=== PATIENT | male | born 1970 | race Caucasian/White ===

== ENCOUNTER 2016-11-08 18:18 | Emergency (ER) | payer MEDICAID | END 2016-11-08 18:51 | disposition home or self-care (01) | LOC: MADERS 18:18 | DX: K12.2 Cellulitis and abscess of mouth (principal); E11.9 Type 2 diabetes mellitus without complications; I10 Essential (primary) hypertension; E78.5 Hyperlipidemia, unspecified; E78.00 Pure hypercholesterolemia, unspecified; Z79.82 Long term (current) use of aspirin | CPT/HCPCS: 99283 ==

== ENCOUNTER 2018-04-02 14:22 | Emergency (ER) | payer SELFPAY ==
[2018-04-02] MEDS ORDERED: HYDROcodone/Acetaminophen 5/325 mg Tablet ONE (14:53)
[2018-04-02] MEDS ORDERED: predniSONE 20 MG TAB ONE (14:53)
== END 2018-04-02 15:05 | disposition home or self-care (01) ==
LOC: MADERS 14:22
DX: S29.012A Strain of muscle and tendon of back wall of thorax, initial encounter (principal); I25.10 Atherosclerotic heart disease of native coronary artery without angina pectoris; E11.9 Type 2 diabetes mellitus without complications; E78.5 Hyperlipidemia, unspecified; I10 Essential (primary) hypertension; Z79.899 Other long term (current) drug therapy; Z79.82 Long term (current) use of aspirin; X50.0XXA Overexertion from strenuous movement or load, initial encounter
CPT/HCPCS: 99283; J7506

== ENCOUNTER 2019-02-23 10:22 | Emergency (ER) | payer SELFPAY | END 2019-02-23 11:15 | disposition home or self-care (01) | LOC: MADERS 10:22 | DX: L55.0 Sunburn of first degree (principal); E11.9 Type 2 diabetes mellitus without complications; E78.5 Hyperlipidemia, unspecified; I10 Essential (primary) hypertension; I25.10 Atherosclerotic heart disease of native coronary artery without angina pectoris; Z79.82 Long term (current) use of aspirin; Z79.899 Other long term (current) drug therapy; Z79.84 Long term (current) use of oral hypoglycemic drugs; Z79.891 Long term (current) use of opiate analgesic | CPT/HCPCS: 99281 ==

== ENCOUNTER 2020-02-15 18:25 | Emergency (ER) | payer OTHER, SELFPAY ==
[2020-02-19 14:46] LABS: SARS-CoV-2 MS2 Positive; SARS-CoV-2 N Gene Negative; SARS-CoV-2 S Gene Negative; SARS-CoV-2 orf1ab Negative
== END 2020-02-15 19:25 | disposition home or self-care (01) ==
LOC: MADERS 18:25
DX: Z20.828 Contact with and (suspected) exposure to other viral communicable diseases (principal); Z79.82 Long term (current) use of aspirin; Z79.02 Long term (current) use of antithrombotics/antiplatelets; Z79.84 Long term (current) use of oral hypoglycemic drugs; Z79.899 Other long term (current) drug therapy
CPT/HCPCS: 87635; 99283; U0003